=== PATIENT | female | born 1990 | race African-American/Black ===

== ENCOUNTER 2018-08-25 20:26 | Emergency (ER) | payer OTHER, SELFPAY ==
[2018-08-25 20:33] VITALS: BP 122/80; PULSE 72; RESP 20; TEMP 36.9; O2SAT 99
--- NOTE | 2018-08-25 21:00 | PC.NURSE ---
Pt states she just wants to rule out kidney/urinary infection. States she called the nurse line for her insurance and was told it could be kidney problems so she came in. Pain starts in back and goes down her leg.
[2018-08-25] MEDS: IBUPROFEN 400 MG TABLET 800 MG PO (21:04)
[2018-08-25] MEDS: CYCLOBENZAPRINE 10 MG TABLET PO (21:05)
--- NOTE | 2018-08-25 21:07 | ED_ITS ---
HPI - Back Pain/Injury General Chief Complaint: Back Pain/Injury Stated Complaint: LT SIDED BACK PAIN GOING DOWN LEG Time Seen by Provider: 08/25/18 20:49 Source: patient and family () Mode of arrival: ambulatory Limitations: no limitations History of Present Illness HPI Narrative: 28-year-old female comes to the emergency department with 2 days of back pain on the left side that is radiating down into her left leg. Patient states that it started immediately after she had about 4 loads of laundry. She states normally she just does 1 or 2 at a time but she did all 4 at once. Patient states that movement does make it worse particularly flexing forward or flexing at the hip region. Patient states she does not any numbness or tingling. She does not have any changes to her bowel or bladder control. Patient has not had any other symptoms. She has not had any frequency, urgency or dysuria but had symptoms about a month ago. She states she took a lot of cranberry at that time it seemed to go away. She called the nursing center today and they had recommended she try azo which was not helpful. She also tried tramadol last night which was only mildly helpful. Patient denies any other prior back issues. She denies any prior medical history, no surgical history. Related Data Previous Rx's Medication Instructions Recorded cyclobenzaprine 10 mg PO TID PRN #10 tab 08/25/18 ibuprofen 800 mg PO TID PRN #30 tab 08/25/18 Allergies Allergy/AdvReac Type Severity Reaction Status Date / Time No Known Drug Allergies Allergy Verified 08/25/18 20:33 Review of Systems Review of Systems All systems reviewed & are unremarkable except as noted in HPI and below Gastrointestinal Gastrointestinal: Denies abdominal pain, Denies change in bowel habits, Denies fecal incontinence, Denies diarrhea, Denies nausea and Denies vomiting Genitourinary Denies hematuria, Denies urinary frequency, Denies urinary incontinence, Denies urinary hesitancy and Denies urinary urgency Musculoskeletal Reports as per HPI, Reports back pain, Reports limited range of motion (Sec to discomfort), Denies muscle weakness, Denies numbness, Reports radiating pain into limb and Denies tingling Integumentary/Breasts Denies rash Neurologic Denies numbness and Denies tingling PFS Social History Smoking Status: Never smoker Exam Narrative Exam Narrative: GENERAL: Alert and oriented x three, well-nourished, well- appearing female in mild distress. HEENT: Head normocephalic, atraumatic, EOMI, pupils reactive, face symmetric, moist mucous membranes NECK: Supple, full range of motion CARDIOVASCULAR: Regular rate and rhythm without murmurs, rubs or gallops. RESPIRATORY: Breath sounds equal bilaterally, no wheezes rales or rhonchi. ABDOMEN: Soft, nontender. Normoactive bowel sounds all 4 quadrants. No guarding or rebound, rigidity, no mass : No CVA tenderness BACK: No cervical, thoracic or lumbar vertebral point tenderness. Patient is tender in the paraspinal and soft tissue/muscular area and the L 1 region to the right of the spinous process. Patient does not have any bony tenderness. She has some tissue tension, Patient has slightly decreased range of motion. Rectal exam is deferred. Muscle strength is 5/5 in lower extremities, DTRs are 2/4 and lower extremities. Dorsalis pedis and tibialis pulses are 2+ and lower extremities. Sensation is intact in the lower extremities. EXTREMITIES: Normal range of motion, no clubbing or edema. Neurovascularly intact NEUROLOGICAL: Cranial nerves II through XII grossly intact. Moving all extremities SKIN: Warm, dry, no petechiae, no rashes or lesions. Initial Vital Signs Initial Vital Signs: Vital Signs Temperature 98.5 F 08/25/18 20:33 Pulse Rate 72 08/25/18 20:33 Respiratory Rate 20 08/25/18 20:33 Blood Pressure 122/80 08/25/18 20:33 Pulse Oximetry 99 08/25/18 20:33 Course Orders Ordered: ED Orders 08/25/18 21:56 Urine Microscopic Stat 08/25/18 22:10 Urine Culture Stat Discontinued Medications Cyclobenzaprine HCl (Flexeril) 10 mg PO NOW ONE Stop: 08/25/18 21:02 Last Admin: 08/25/18 21:05 Dose: 10 mg Ibuprofen (Advil) 800 mg PO NOW ONE Stop: 08/25/18 21:02 Last Admin: 08/25/18 21:04 Dose: 800 mg Vital Signs - 8 hr 08/25/18 20:33 08/25/18 22:10 Temperature 98.5 F 99.5 F Pulse Rate 72 64 Respiratory Rate 20 16 Blood Pressure 122/80 117/84 Pulse Oximetry 99 100 MDM - Back Pain/Injury Lab Data Lab Results 08/25/18 Range/Units 21:56 Urine RBC 0-1/hpf (0-5/HPF) Urine WBC 0-1/hpf (0-5/HPF) Ur Squamous Epith Cells 1-5 /hpf Urine Bacteria Moderate (10-30) H (None) Urine Mucus 1+ H (Negative) Urine Yeast 0-1/hpf (None) Ur Culture Indicated? Cult not indicated Micro UA Comment Not Reportable Point of Care Testing Test Results Negative Urine Dip Bedside Urine Glucose Negative Bedside Urine Bilirubin - Negative Bedside Urine Ketone - Negative Urine Specific [place] 1.030 Bedside Urine Occult Blood + Bedside Urine pH 6.0 Bedside Urine Protein - Negative Bedside Urine Urobilinogen - Negative Bedside Urine Nitrite - Negative Bedside Urine Leukocytes - Negative Esterase MDM Narrative Medical decision making narrative: Discussed with patient my suspicion for a kidney infection or bladder infection is low based on her symptoms but she had some symptoms urinary decker about a month ago will go ahead and check today. Patient had tramadol which was only mildly helpful. We discussed trying some ibuprofen along with a muscle relaxant to see if this improves her symptoms. We discussed not doing any imaging at this time she is having no bony tenderness it is more soft tissue and likely secondary to activities yesterday. Recheck after medications, she is much more comfortable at this time. Patient urine has some blood, her menses was a week ago. Plan to send for micro , if concerning will culture. After further discussion patient asked if hematuria could be second to sexually activity as she was active earlier today. We discussed this could be the case. Discharge Plan Departure Patient Disposition: Home Clinical Impression: Low back pain Discharge Date/Time: 08/25/18 22:12 Interventions: ED Discharge Assessment Last Done: 08/25/18 22:10 Instructions: DI for Back Pain With Sciatica Activity Restrictions/Additional Instructions: Follow-up with primary care if your symptoms are not improving in the next 7-10 days. Return to the emergency department for fevers greater than 100.4, new weakness, new numbness in your lower extremities, loss of bowel or bladder control, rapidly worsening pain or other new or concerning symptoms. You may take ibuprofen 800 mg every 8 hr as needed for symptoms. You may also take Flexeril with this, the take this medication every 8 hr as needed. This medication can make you sleepy do not drive, perform hazards activities or make any major decisions while taking it. Prescriptions: New cyclobenzaprine 10 mg tablet 10 mg PO TID PRN (Reason: muscle spasm) Qty: 10 RF: 0 ibuprofen 800 mg tablet 800 mg PO TID PRN (Reason: pain) Qty: 30 RF: 0
[2018-08-25 22:10] VITALS: BP 117/84; PULSE 64; RESP 16; TEMP 37.5; O2SAT 100
[2018-08-25 22:12] LABS: RBC Urine 0-1/HPF (0-5/HPF); WBC Urine 0-1/HPF (0-5/HPF)
[2018-08-25 22:13] LABS: Bacteria Urine Moderate (10-30); Mucus Urine 1+ (Negative); Squamous Epithelial Cell Urine 1-5 /HPF
[2018-08-25 22:14] LABS: Culture Indicated Urine Cult Not Indicated
== END 2018-08-25 22:12 | disposition home or self-care (01) ==
PROVIDERS: Emergency Provider Emergency Medicine
DX: M54.5 Low back pain (principal)
CPT/HCPCS: 81003; 81015; 81025; 87077; 87086; 99282; 99283

== ENCOUNTER 2019-01-14 22:59 | Emergency (ER) | payer OTHER, SELFPAY ==
[2019-01-14 23:10] VITALS: BP 129/66; PULSE 80; RESP 16; TEMP 36.8; O2SAT 97; BMI 24.0
[2019-01-15] MEDS: METOCLOPRAMIDE 10 MG/2 ML INJ IV (00:21)
[2019-01-15] MEDS: ACETAMINOPHEN 325 MG TABLET 650 MG PO (00:21)
[2019-01-15] MEDS: SODIUM CHLORIDE 0.9% 1,000 ML 1000 ML IV (00:21)
--- NOTE | 2019-01-15 00:45 | PC.NURSE ---
Pt reports wanting to go home due to home alarm has been activated. Pt reports SAMANIEGO has not improved yet.
[2019-01-15 00:46] VITALS: BP 111/63; PULSE 88; RESP 16; O2SAT 97
--- NOTE | 2019-01-15 05:32 | ED_ITS ---
HPI - Headache General Chief Complaint: Headache Stated Complaint: has migraine since yesterday Time Seen by Provider: 01/14/19 23:05 Source: patient and family Mode of arrival: ambulatory Limitations: no limitations History of Present Illness HPI Narrative: 28-year-old female nonsmoker, otherwise healthy and at 13 weeks presents with her significant other and a chief complaint of a gradual onset left-sided frontal headache. Her symptoms are worse with exertion and bright lights. They improve with a dark room and rest. She has had nausea but no vomiting. She denies any focal neurologic findings such as numbness, tingling or weakness. She denies any injury nor recent illness MD Complaint: headache and migraine Onset (ago): day(s) Onset description: gradual Location: left and frontal Quality: aching and throbbing Relieving factors: dark room Exacerbating factors: light and noise Context: occurred at rest Treatments prior to arrival: none Related Data Previous Rx's Medication Instructions Recorded cyclobenzaprine 10 mg PO TID PRN #10 tab 08/25/18 ibuprofen 800 mg PO TID PRN #30 tab 08/25/18 Allergies Allergy/AdvReac Type Severity Reaction Status Date / Time No Known Drug Allergies Allergy Verified 01/14/19 23:10 Review of Systems Constitutional Denies chills, Denies fever(s), Reports headache(s), Denies lethargy and Denies weakness Eyes Denies change in vision, Denies eye discharge, Denies irritation and Denies loss of vision ENT Ears, Nose, Mouth, and Throat: Denies change in voice, Reports headache(s), Denies neck pain and Denies sore throat Cardiovascular Denies chest pain, Denies irregular heart rhythm, Denies lightheadedness, Denies palpitations, Denies dyspnea, Denies dyspnea on exertion and Denies orthopnea Respiratory Denies cough, Denies dyspnea, Denies dyspnea on exertion and Denies wheezing Gastrointestinal Gastrointestinal: Denies abdominal pain, Denies change in bowel habits, Denies diarrhea, Denies nausea and Denies vomiting Genitourinary Denies hematuria, Denies flank pain, Denies urinary incontinence and Denies urinary urgency Musculoskeletal Denies neck pain Integumentary/Breasts Denies pruritus, Denies erythema, Denies rash and Denies wounds Neurologic Denies confusion, Reports headache(s), Denies loss of vision and Denies weakness Psychiatric Denies anxiety, Denies confusion, Denies depression, Denies homicidal ideation and Denies suicidal ideation Endocrine Denies palpitations Hematologic/Lymphatic Denies easy bruising Allergic/Immunologic Denies wheezing PFSH Social History Smoking Status: Never smoker Social History Smoking Status: Never smoker Exam Narrative Exam Narrative: GENERAL: This is a well-nourished, well-developed patient, in mild distress. HEAD: 28-year-old female obviously uncomfortable, in a dark room Atraumatic. Normocephalic. No temporal or scalp tenderness. EYES: Pupils equal round and reactive. Extraocular motions intact. No scleral icterus. No injection or drainage. ENT: Nose without bleeding, purulent drainage or septal hematoma. Throat without erythema, tonsillar hypertrophy or exudate. Uvula midline. Airway patent. NECK: Trachea midline. No JVD or lymphadenopathy. Supple, nontender, no meningeal signs. CARDIOVASCULAR: Regular rate and rhythm without murmurs, gallops, or rubs. RESPIRATORY: Clear to auscultation. Breath sounds equal bilaterally. No wheezes, rales, or rhonchi. GASTROINTESTINAL: Abdomen soft, non-tender, nondistended. No hepato- splenomegaly, or palpable masses. No guarding. EXTREMITIES: No clubbing, cyanosis, or edema. No joint tenderness, effusion, or edema noted. BACK: Nontender without deformity or crepitance. No flank tenderness. NEURO: AOx3. SKIN: No rash or erythema. NIH Stroke Scale 1a. LOC: Patient is alert and keenly responsive (0) 1b. LOC Questions: Patient answers both LOC questions accurately (0) 1c. LOC Commands: Patient performs both tasks correctly (0) 2. Best Gaze: Normal (0) 3. Visual: No visual loss (0) 4. Facial palsy: Normal symmetrical movements (0) 5. Motor arm: No drift (0) 6. Motor leg: No drift (0) 7. Limb ataxia: Absent (0) 8. Sensory: Normal (0) 9. Best language: No aphasia; normal (0) 10. Dysarthria: Normal (0) 11. Extinction and inattention: No abnormality (0) NIHSS: 0 Initial Vital Signs Initial Vital Signs: Vital Signs Temperature 98.2 F 01/14/19 23:10 Pulse Rate 80 01/14/19 23:10 Respiratory Rate 16 01/14/19 23:10 Blood Pressure 129/66 01/14/19 23:10 Pulse Oximetry 97 01/14/19 23:10 Course Orders Ordered: Discontinued Medications Acetaminophen (Tylenol) 650 mg PO NOW ONE Stop: 01/14/19 23:52 Last Admin: 01/15/19 00:21 Dose: 650 mg Sodium Chloride (Normal Saline 0.9%) 1,000 mls @ 1,000 mls/hr IV BOLUS ONE Stop: 01/15/19 00:50 Last Infusion: 01/15/19 00:46 Dose: 999 mls/hr Admin: 01/15/19 00:21 Dose: 1,000 mls/hr Metoclopramide HCl (Reglan) 10 mg IV NOW ONE Stop: 01/14/19 23:52 Last Admin: 01/15/19 00:21 Dose: 10 mg Reevaluation(s) Reevaluation #1: Patient feels much better after above-stated therapies. Vital Signs - 8 hr 01/14/19 23:10 01/15/19 00:46 Temperature 98.2 F Pulse Rate 80 88 Respiratory Rate 16 16 Blood Pressure 129/66 Blood Pressure [Left Arm] 111/63 Pulse Oximetry 97 97 Discharge Plan Departure Patient Disposition: Home Clinical Impression: Headache Qualifiers: Headache type: unspecified Headache chronicity pattern: acute headache Intractability: not intractable Qualified Code(s): R51 - Headache Discharge Date/Time: 01/15/19 00:51 Interventions: ED Discharge Assessment Last Done: 01/15/19 00:52 Instructions: DI for Headache Activity Restrictions/Additional Instructions: *You have been diagnosed with [ headache, possible migraine ] *What to do: *Take medications as directed *Follow up with your primary care provider in 2-3 days, call for an appointment. Let them know you were seen in the Emergency Department and that we ask that you be seen in follow up *Return to ER if you should have any new, worsening or concerning symptoms Prescriptions: No Action cyclobenzaprine 10 mg tablet 10 mg PO TID PRN (Reason: muscle spasm) Qty: 10 RF: 0 ibuprofen 800 mg tablet 800 mg PO TID PRN (Reason: pain) Qty: 30 RF: 0
== END 2019-01-15 00:51 | disposition home or self-care (01) ==
PROVIDERS: Emergency Provider Emergency Medicine
DX: R51 Headache (principal); Z33.1 Pregnant state, incidental
CPT/HCPCS: 36591; 96374; 99283; 99284; J2765